=== PATIENT | male | born 1990 | race Caucasian/White ===

== ENCOUNTER 2025-06-01 10:50 | Outpatient (CLI) | payer OTHER, SELFPAY ==
--- NOTE | 2025-06-01 12:00 | CRLHL7_ITS ---
For Patients: As a result of the 21st Century Cures Act, medical imaging exams and procedure reports are released immediately into your electronic medical record. You may view this report before your referring provider. If you have questions, please contact your health care provider. INDICATION: Left lower quadrant abdominal pain. Nausea. Evaluate for gastroparesis. TECHNIQUE: 0.8 mCi Tc-99m labeled Sulfur Colloid mixed in with a predetermined meal (1 egg, 2 pieces of toast, and cranberry juice). Imaging performed up to 4 hours. FINDINGS: There is no scintigraphic evidence for delayed gastric emptying. 0 minutes: 100 percent of activity remains. 30 minutes: 53 percent of activity remains. 60 minutes: 22 percent of activity remains. 90 minutes: 17 percent of activity remains. 120 minutes: 8 percent of activity remains. 240 minutes: 1 percent of activity remains. IMPRESSION: No scintigraphic evidence for delayed gastric emptying. Dictated by Joaquín Ortiz MD @ 06/03/2025 12:26:19 PM (Electronically Signed)
== END 2025-06-01 10:51 | disposition home or self-care (01) ==
PROVIDERS: Visit Provider Internal Medicine Gastroenterology
DX: R10.32 Left lower quadrant pain (principal); R11.0 Nausea; R63.4 Abnormal weight loss; I87.1 Compression of vein; Z86.0100 Personal history of colon polyps, unspecified
CPT/HCPCS: 78264; A9541